=== PATIENT | female | born 1950 | race Hispanic/Latino ===

== ENCOUNTER 2016-10-17 21:22 | Emergency (ER) | payer OTHER ==
[~2016-10-17] VITALS: Ht 162.6 cm; Wt 127.9 kg
[~2016-10-17 21:22] MED LIST: "\\\"BP MED\\\""; CEPHALEXIN500 MG PO
[2016-10-17] MEDS ORDERED: CATAPRES0.1 MG PO (21:38)
[2016-10-17] MEDS ORDERED: LEVOTHYROXINE100 MCG PO (22:59)
[2016-10-17] MEDS ORDERED: AMIODARONE HCL200 MG PO (23:00)
[2016-10-17] MEDS ORDERED: CLOPIDOGREL75 MG PO (23:01)
== END 2016-10-17 23:45 | disposition home or self-care (01) ==
LOC: ED 21:22
DX: R31.9 Hematuria, unspecified (principal); I10 Essential (primary) hypertension; Z79.899 Other long term (current) drug therapy
CPT/HCPCS: 80053; 81001; 85025; 99284